=== PATIENT | female | born 1965 | race Caucasian/White ===

== ENCOUNTER → 2017-09-30 | Day surgery (SDC) | payer OTHER, MEDICARE ==
[2007-07-20 08:19] VITALS: BP 106/58
[~2017-09-30] MED LIST: ALDACTONE50 MG PO; CIPRO 500MG TA500 MG PO; CIPROFLOXACIN500 MG PO; DOLOPHINE HCL10 M1 PO; ENULOSE 2020 GM/30 M PO; ENULOSE10 GM/15 M PO; FOLIC ACID 1 MG PO; K-DUR 20MEQ TA20 MEQ PO; KEPPRA 500MG T500 MG PO; KEPPRA1000 MG PO; KEPPRA750 M1 PO; LACTULOSE10 GM/153 PO; LASIX20 MG PO; LASIX40 MG PO; LASIX80 M1 PO; LEVOTHYROXIN0.088 MG PO; LEVOTHYROXINE88 MCG PO; LIOTHYRONINE SO5 MC1 PO; LITHIUM CARBON300 M1 PO; LITHIUM CARBON300 M3 PO; LITHIUM CARBON450 M1 PO; MORPHINE SULFAT30 M7 PO; NADOLOL20 MG PO; NEURONTIN600 M1 PO; PROPRANOLOL HCL20 M1 PO; SPIRONOLACTONE50 M1 PO; VIIBRYD40 MG PO; XIFAXAN550 MG PO
--- NOTE | 2017-10-01 08:58 | MAMMOGRAPHY REPORT ---
PROCEDURE: US GUIDANCE FOR BREAST PREOPERATIVE WIRE FREE LOCALIZATION, LEFT MM POST LOCALIZATION 2 VIEWS, LEFT BREAST CLINICAL INFORMATION: 51-year-old female known to have biopsy proved invasive ductal carcinoma, initially suspected on screening mammogram done on 09/01/2017, and subsequently confirmed with diagnostic mammogram, ultrasound and ultrasound-guided biopsy done on the same day. Preoperative wire-free localization is requested. COMPARISON: Prior studies done on 09/01/2017. TECHNIQUE AND FINDINGS: The details of the procedure, as well as the risks, benefits, and alternatives to the procedure were explained to the patient in detail and all of her questions were answered, after which, written informed consent was obtained. Prior to the procedure, sonography revealed the indexed biopsy proved solid-appearing mass measuring 1.0 x 0.6 x 0.7 cm at 10 o'clock, 9 cm from the nipple within the left breast. A timeout was performed, the lesion intended for wire free localization was targeted and the skin of the left breast was then prepped and draped in the usual sterile fashion. Using sonographic guidance, sterile technique and 10 mL of 2% lidocaine mixed with 1 mL of sodium bicarbonate without epinephrine for local anesthesia, a 7.5 cm [employer] reflector and delivery system was placed within the biopsy-proved invasive ductal carcinoma at 10 o'clock, 9 cm from the nipple and the reflector device was deployed without complications. The distance to the reflector from the skin surface measured 1.6 cm. The distance to the chest wall from the reflector measured 0.8 cm. The overlying skin was also marked with skin marker. The patient tolerated the procedure well. 2 view mammograms further confirmed accurate placement of the reflector within the intended mass. Previously placed tissue marker was also identified adjacent to the newly placed reflector device. The worksheet was appropriately labeled and scanned into the system. IMPRESSION: 1. Successful sonographic guided wire free localization of the left breast biopsy-proved invasive ductal carcinoma at 10 o'clock, 9 cm from the nipple. 2. Mammographic confirmation of accurate placement of the reflector device along with appropriate marking for presurgical roadmap with the worksheet. 3. The overlying skin surface was also marked with a skin marker.
== END ==
LOC: CBW.IIU 09-26 08:30 → CBW.US 09-26 09:00 → CBW.IIU 08:30
DX: C50.112 Malignant neoplasm of central portion of left female breast (principal)
CPT/HCPCS: 76942; 77065-LT; A4648; G0279; J2001

== ENCOUNTER → 2017-10-10 | Day surgery (SDC) | payer OTHER, MEDICARE ==
[~2017-10-10] VITALS: Ht 165.1 cm; Wt 73.5 kg
[~2017-10-10] MED LIST changes: +LASIX40 M1 PO; +LEVOXYL75 MCG PO; +XIFAXAN550 M1 PO; -XIFAXAN550 MG PO
[2017-10-10 11:58] LABS: PT 16.4 SEC (9.4-12.5); PTT 34 SEC (25-37)
--- NOTE | 2017-10-10 16:07 | Operative Report ---
Operative/Inv Procedure Report Surgery Date: 10/10/17 Name of Procedure: Left partial mastectomy and sentinel lymph node biopsy Pre-Operative Diagnosis: Left breast cancer Post-Operative Diagnosis: Same Estimated Blood Loss: less than 50ml Surgeon/Film Flat Inspector: Catie Scott MD Anesthesia: laryngeal mask airway Specimens: Left lumpectomy, cranial margin, caudal margin, medial margin, lateral margin, sentinel lymph node Operative/Procedure Note Note: Patient has a left breast cancer diagnosed by needle biopsy. She is brought to the operating room for postmastectomy and sentinel lymph node biopsy. Preoperative lymphoscintigraphy and clip localization was performed and those films reviewed. She is brought to the operating room and given 600 mg of clindamycin. Anesthesia was demonstrated left breast prepped and draped in a sterile fashion using ChloraPrep. 3 mL of methylene blue diluted with 2 mL of saline was injected in the retroareolar fashion. The breast was approached first. A 70 scouts localization device was used to localize the clip in the extreme upper inner quadrant of the breast. Incision was planned inferior to improve cosmesis. Marcaine was given and incision was made. Tissue was dissected in the subcutaneous plane up to the clip. The area of concern was grasped with an Allis clamp and dissected to perform a generous lumpectomy. The specimen was removed and marked for orientation using margin map. Intraoperative x-ray confirmed the presence of both clips in the specimen. Additional margins were taken in the cranial, caudal, medial, lateral positions. No additional deep margin was taken as the deep aspect of the lumpectomy was the pectoralis fascia and the anterior portion was subcutaneous tissue. Hemostasis was achieved using mammary clips were used to karla the margins a lumpectomy. Deep tissue was approximated using interrupted Vicryl sutures and the skin was closed using running Biosyn subcuticular stitch. The axilla was then approached. After giving local anesthesia an incision was made. Subcutaneous tissue and clavipectoral fascia were opened. A single hot lymph node was identified with blue dye visible. This was sent as sentinel lymph node. There were no other hot, blue, or palpable lymph nodes in the axilla. Hemostasis was achieved and clavipectoral fascia was closed using Vicryl sutures and skin was closed in running Biosyn subcutaneous stitch. Steri -Strips and sterile dressings were applied and patient transferred to recovery room in satisfactory condition having tolerated procedure well.
--- NOTE | 2017-10-10 16:36 | MAMMOGRAPHY REPORT ---
EXAMINATION: MM SPECIMEN FROM THE BREAST, LEFT CLINICAL INDICATION: 51-year-old female with biopsy proved invasive ductal carcinoma, diagnosed on ultrasound-guided biopsy done on 09/01/2017. Subsequent ultrasound-guided wire free localization was performed on 09/30/2017. Specimen radiograph following surgical excision is requested. COMPARISON: 09/30/2017 and 09/01/2017. TECHNIQUE: Radiograph of the surgical specimen was performed. FINDINGS: The radiograph of the excised surgical specimen shows that the previously placed tissue marker placed at the time of ultrasound-guided biopsy, and the wire free localization marker are within the specimen. IMPRESSION: Satisfactory excision of the targeted lesion. These findings were communicated to the surgeon in the OR at the time of specimen radiography.
== END ==
LOC: STS 01:11
PROVIDERS: Surgery
DX: C50.212 Malignant neoplasm of upper-inner quadrant of left female breast (principal); Z17.0 Estrogen receptor positive status [ER+]; K70.30 Alcoholic cirrhosis of liver without ascites; K76.6 Portal hypertension; E03.9 Hypothyroidism, unspecified; E16.1 Other hypoglycemia; R56.9 Unspecified convulsions
CPT/HCPCS: 36415; 88305; 88307; J0131; J0690; J1100; J1885; J2250; J2405; J3490; Q9968